=== PATIENT | female | born 1960 | race Caucasian/White ===

== ENCOUNTER → 2016-03-28 | Outpatient (CLI) | payer OTHER ==
[2016-03-29 09:16] VITALS: BP 105/73
== END ==
LOC: MHUC 10:23
PROVIDERS: ATTEND Physician Assistant Medical
DX: J01.40 Acute pansinusitis, unspecified (principal); J18.1 Lobar pneumonia, unspecified organism; N30.90 Cystitis, unspecified without hematuria
CPT/HCPCS: 81002; 99213